=== PATIENT | female | born 1970 | race Caucasian/White ===

== ENCOUNTER → 2022-07-28 | Outpatient (CLI) | payer OTHER ==
[~2022-07-28] MED LIST: ALBU90OI INH; CIPR500 PO; FLUC200 PO; Hair, Skin & N1 EACH PO; IBUP600 PO; IBUP800 PO; LEVO750 PO; LOVA20 PO; NAPR220 PO; OMEP20ER PO; OSEL75CA PO; OXYACE5T PO; PRED20 PO; PROM25 PO; SERT100 PO; SERT25 PO
== END | disposition home or self-care (01) ==
LOC: LAB SHORT 09:32 → LAB 09:32
DX: L08.9 Local infection of the skin and subcutaneous tissue, unspecified (principal)
CPT/HCPCS: 87070; 87147; 87205